=== PATIENT | female | born 1950 | race Caucasian/White ===

== ENCOUNTER 2018-11-14 09:14 | Emergency (ER) | payer OTHER ==
[~2018-11-14] VITALS: Ht 157.5 cm; Wt 104.3 kg
[~2018-11-14 09:14] MED LIST: ARIP15 PO; ASPI81CH PO; CITA20 PO; ESTRTP VAG; MULT50L PO; NITR.4SL SL; Prilosec Otc20 MG PO; SOMA350 MG PO; VITAMIN B122500 MCG PO; VITAMIN D31000 UNIT PO; ZYRTEC10 M2 PO
[2018-11-14] MEDS ORDERED: Amlodipine Bes2.5 MG PO (09:28)
== END 2018-11-14 10:00 | disposition home or self-care (01) ==
LOC: ER 09:14
DX: S00.93XA Contusion of unspecified part of head, initial encounter (principal); S20.219A Contusion of unspecified front wall of thorax, initial encounter; V49.9XXA Car occupant (driver) (passenger) injured in unspecified traffic accident, initial encounter; Z88.8 Allergy status to other drugs, medicaments and biological substances; Z79.899 Other long term (current) drug therapy; Z79.82 Long term (current) use of aspirin; I10 Essential (primary) hypertension; K21.9 Gastro-esophageal reflux disease without esophagitis; F32.9 Major depressive disorder, single episode, unspecified
CPT/HCPCS: 71045; 99284-25

== ENCOUNTER 2021-03-28 12:19 | Emergency (ER) | payer OTHER ==
[~2021-03-28] VITALS: Ht 157.5 cm; Wt 108.4 kg
[~2021-03-28 12:19] MED LIST changes: +Advair Hfa 115-12 GM INH; +Amlodipine Bes2.5 MG PO; +Aspir 8181 MG PO; +Carisoprodol350 MG PO; +MULTI-VITAMIN1 EAC2 PO; +Voltaren100 GM TOP
[2021-03-28] MEDS ORDERED: HYDR1TAB94 PO (14:10)
== END 2021-03-28 14:27 | disposition home or self-care (01) ==
LOC: ER 12:19
DX: S83.92XA Sprain of unspecified site of left knee, initial encounter (principal); Z88.8 Allergy status to other drugs, medicaments and biological substances; W01.0XXA Fall on same level from slipping, tripping and stumbling without subsequent striking against object, initial encounter
CPT/HCPCS: 73562-LT; 99283-25

== ENCOUNTER 2022-02-10 11:30 | Day surgery (SDC) | payer OTHER ==
[~2022-02-10] VITALS: Ht 157.5 cm; Wt 95.7 kg
[~2022-02-10 11:30] MED LIST changes: +HYDR1TAB94 PO
[2022-02-10] MEDS ORDERED: EZET10 (11:56)
[2022-02-10] MEDS ORDERED: LOSA25 (11:57)
== END 2022-02-10 14:00 | disposition home or self-care (01) ==
LOC: ORSCSDS 11:30
PROVIDERS: Student in an Organized Health Care Education/Training Program
PROC: 0DBH8ZX Excision of Cecum, Via Natural or Artificial Opening Endoscopic, Diagnostic (ICD-10-PCS; principal; 2022-02-10 13:15)
PROC: 0DBK8ZX Excision of Ascending Colon, Via Natural or Artificial Opening Endoscopic, Diagnostic (ICD-10-PCS; principal; 2022-02-10 13:15)
PROC: 0DBN8ZX Excision of Sigmoid Colon, Via Natural or Artificial Opening Endoscopic, Diagnostic (ICD-10-PCS; principal; 2022-02-10 13:15)
PROC: 0DBM8ZX Excision of Descending Colon, Via Natural or Artificial Opening Endoscopic, Diagnostic (ICD-10-PCS; principal; 2022-02-10 13:15)
DX: Z12.11 Encounter for screening for malignant neoplasm of colon (principal); D12.2 Benign neoplasm of ascending colon; D12.4 Benign neoplasm of descending colon; K64.4 Residual hemorrhoidal skin tags; Z86.010 Personal history of colon polyps; I10 Essential (primary) hypertension; G47.33 Obstructive sleep apnea (adult) (pediatric); Z86.73 Personal history of transient ischemic attack (TIA), and cerebral infarction without residual deficits; F33.9 Major depressive disorder, recurrent, unspecified; E66.9 Obesity, unspecified; Z68.38 Body mass index [BMI] 38.0-38.9, adult; Z79.01 Long term (current) use of anticoagulants; Z79.899 Other long term (current) drug therapy
CPT/HCPCS: 88305; J0330; J0461; J2405; J2704; J3010; J7120

== ENCOUNTER 2024-03-31 12:49 | Day surgery (SDC) | payer OTHER ==
[~2024-03-31 12:49] MED LIST changes: +EZET10 PO; +LOSA25 PO
[2024-03-31 14:43] VITALS: BP 169/73
[2024-03-31 15:20] LABS: Source, Urine Straight Cath
[2024-03-31 15:58] LABS: Appearance, Urine Clear (Clear); Bilirubin, Urine Neg (Neg); Blood, Urine Neg (Neg); Color, Urine Yellow (P-Yellow); Glucose Qualitative, Urine Neg (Neg); Ketones, Urine Neg (Neg); Leukocyte Esterase, Urine Neg (Neg); Nitrite, Urine Neg (Neg); Protein, Urine Neg (Neg); Urobilinogen, Urine NORM (Normal)
[2024-03-31] MEDS ORDERED: MASOPHEN325 MG PO (17:24)
[2024-03-31] MEDS ORDERED: RECLAST (17:24)
[2024-03-31] MEDS ORDERED: PROTONIX4010 PO (17:25)
[2024-03-31] MEDS ORDERED: Voltaren100 GM TOP (17:25)
[2024-03-31] MEDS ORDERED: QUET25 PO (17:26)
[2024-03-31] MEDS ORDERED: LORA10ER PO (17:26)
[2024-03-31] MEDS ORDERED: FLUT1DIS5 INH (17:27)
[2024-03-31] MEDS ORDERED: ALBU90OI INH (17:27)
[2024-03-31] MEDS ORDERED: CLOP75 PO (17:28)
[2024-03-31] MEDS ORDERED: MAXIDE (17:28)
[2024-03-31] MEDS ORDERED: FAMO20 PO (17:29)
== END 2024-03-31 15:02 | disposition home or self-care (01) ==
LOC: ATC 12:49
PROVIDERS: Internal Medicine
DX: R82.90 Unspecified abnormal findings in urine (principal); I12.9 Hypertensive chronic kidney disease with stage 1 through stage 4 chronic kidney disease, or unspecified chronic kidney disease; N18.30 Chronic kidney disease, stage 3 unspecified; M54.50 Low back pain, unspecified; E78.5 Hyperlipidemia, unspecified; K21.9 Gastro-esophageal reflux disease without esophagitis; J45.909 Unspecified asthma, uncomplicated; Z88.6 Allergy status to analgesic agent; Z88.8 Allergy status to other drugs, medicaments and biological substances; Z79.899 Other long term (current) drug therapy
CPT/HCPCS: 81003; P9612